=== PATIENT | male | born 1945 | race Caucasian/White ===

== ENCOUNTER 2017-06-10 21:01 | Inpatient (IN) ==
[2017-06-10] MEDS ORDERED: Naloxone 0.4 MG/ML INJ IVP PRN (23:40)
[2017-06-10] MEDS ORDERED: Ondansetron ODT 4 MG TAB.RAPDIS SL PRN (23:40)
[2017-06-10] MEDS ORDERED: Acetaminophen 325 MG TABLET PO PRN (23:40)
--- NOTE | 2017-06-10 23:40 | Internal Med History&Physical ---
Date of Encounter: 06/11/17 Time of Encounter: 23:35 Assessment and Plan (1) CVA (cerebral vascular accident) Current visit: Yes Status: Acute Aspirin 325 mg daily, check MRI brain check carotid Doppler, physical therapy and occupational therapy consults, most likely patient needed rehabilitation. We will check cardiac echo to rule out any embolic stroke, patient is not candidate for TPA (2) COPD (chronic obstructive pulmonary disease) Current visit: Yes Status: Acute stable Qualifiers: COPD type: unspecified COPD Qualified Code(s): J44.9 - Chronic obstructive pulmonary disease, unspecified (3) HTN (hypertension) Current visit: Yes Status: Acute Close monitoring, avoid tight control of blood pressure during the acute stage Qualifiers: Hypertension type: essential hypertension Qualified Code(s): I10 - Essential (primary) hypertension (4) Dyslipidemia Current visit: Yes Status: Acute (5) Parkinson disease Current visit: Yes Status: Acute Resume home medication Internal Medicine - H&P: HPI Chief complaint: Weakness and left lower extremities Admitted From: Emergency Dept History of present illness: Mr. Ontiveros is a 71 year old male with past medical history of coronary artery disease status post 4 stent. Patient stated that he had fall about 2 months ago since then he had left hip pain. Patient is complaining of generalized weakness. Patient stated about 1 month ago he started to have left lower extremity weakness which has been getting worse over last 3 days. Patient stated, he noticed some drooping of fluids from left side of his mouth , this is happening on and off for lately patient does not know for how long .patient denies any visual changes. Patient stated [place] for him to walk now Past Med Surg Social Fam HX - Past Medical History Medical history: COPD, coronary artery disease, diabetes, hyperlipidemia, hypertension, myocardial infarction Psychiatric history: no psych history - Past Surgical History Surgical History: angioplasty/stent - Social History Smoking Status: Current every day smoker Packs per day: 1 Smokeless Tobacco Status: No Alcohol use: none Drug use: none - Family History Father Hx Family Cancer: Yes (lung) Mother History Unknown: Yes Internal Medicine - H&P: Meds Aspirin Enteric Coated [Aspirin] 81 mg PO DAILY 05/22/15 [History] Buspirone 10 mg PO DAILY 05/22/15 [History] Calcium Citrate/Vitamin D3 500 mg PO DAILY 05/22/15 [History] Carbidopa/Levodopa 25/100 1 tab PO TID 05/22/15 [History] Ropinerole 2 mg PO TID 05/22/15 [History] Sertraline [Zoloft] 50 mg PO DAILY 05/22/15 [History] Simvastatin [Zocor] 40 mg PO HS 05/22/15 [History] TraMADol [Ultram] 50 mg PO TID PRN 05/22/15 [History] Polyethylene Glycol 3350 [MiraLAX Powder Bulk 17.9 Oz] 1 scoop PO BID PRN #510 gm 08/21/16 [Rx] Meclizine [Antivert] 12.5 mg PO TID PRN #15 tablet 09/22/16 [Rx] Aspirin [Lo-Dose Aspirin EC] 81 mg PO DAILY 06/10/17 [History] 3 Allergy/AdvReac Type Severity Reaction Status Date / Time ciprofloxacin [From Cipro] AdvReac Itching Verified 06/10/17 14:30 All Systems PM: A 10-system review of systems was performed and is negative for pertinent findings except as documented above in the HPI. - Constitutional Vitals: Temp Pulse Resp BP Pulse Ox 97.7 F 76 17 122/70 94 06/10/17 22:48 06/10/17 22:48 06/10/17 22:48 06/10/17 22:48 06/10/17 22:48 General appearance: Present: A&O X 3 - Head Head exam: Present: atraumatic, normocephalic - Respiratory Respiratory exam: Present: decreased breath sounds. Absent: accessory muscle use, rales, rhonchi, wheezes - Cardiovascular Cardiovascular exam: Present: RRR, +S1, +S2. Absent: diastolic murmur, gallop, rubs, systolic murmur - GI/Abdominal GI/Abdominal exam: Present: normal bowel sounds, soft, no peritoneal signs. Absent: distended, tenderness - Extremities Exam Extremities exam: Present: warm, radial pulses palpable and symmetrical. Absent : calf tenderness, cyanotic, pedal edema - Neurological Exam Neurological exam: Present: alert, oriented X3, facial droop (Left facial drop) . Absent: pronater drift, speech deficit Additional comments: Rigidity stiffness left lower extremities, motor 2 out of 5 left lower extremities, weak hand brand recorder on left lower extremities - Skin Skin exam: Present: dry, intact Internal Med - H&P Results - Labs CBC & Chem 7: 06/11/17 00:37 06/11/17 00:37
[2017-06-11 01:06] LABS: Basophils % 0.5 %; Eosinophils # 0.1 K/mcL (0.0-0.6); Hemoglobin 12.9 g/dL (12.9-16.9); Immature Granulocytes % 0.3 % (0-4); Lymphocytes # 1.4 K/mcL (0.6-4.6); Lymphocytes % 21.8 %; Mean Corpuscular HGB Conc 32.3 g/dL (31.6-35.5); Mean Corpuscular Hemoglobin 28.5 pg (28.0-33.3); Mean Corpuscular Volume 88.3 fL (83.0-100.0); Mean Platelet Volume 10.7 fL (9.4-12.4); Monocytes # 0.4 K/mcL (0.0-1.3); Monocytes % 5.4 %; Neutrophils # 4.6 K/mcL (1.6-8.9); Platelet Count 183 K/mcL (140-400); Red Blood Count 4.53 M/mcL (4.19-5.50); Red Cell Distribution Width 13.6 % (11.5-14.5)
[2017-06-11 01:26] LABS: Phosphorous 2.9 mg/dL (2.7-4.5)
[2017-06-11 01:29] LABS: BUN/Creatinine Ratio 24 (6-26); Blood Urea Nitrogen 23 mg/dL (8-23); Calcium 9.7 mg/dL (8.6-10.3); Carbon Dioxide 30 mEq/L (23-29); Chloride 103 mEq/L (98-107); Glucose 113 mg/dL (70-105); Osmolality,Calculated 292 (280-300); Potassium 3.8 mEq/L (3.5-5.1); Sodium 139 mEq/L (136-145); eGFR For African Americans > 60 (> 60); eGFR For Non-African Americans > 60 (> 60)
[2017-06-11] MEDS: Carbidopa/Levodopa 25/100 TABLET PO SCH ×3 (08:42→21:18)
[2017-06-11 10:24] LABS: Chol/HDL Ratio 5.1 (0-4.9)
--- NOTE | 2017-06-11 11:18 | Neurology - Consult Note ---
<Carmenza Rai - Last Filed: 06/11/17 15:56> Date of Encounter: 06/11/17 Time of Encounter: 11:16 Assessment and Plan (1) Left-sided weakness Current Visit: Yes Status: Acute patient reports left arm and leg weakness that started about one month ago and has progressively been getting worse. denies hx of stroke CT head showed decreased attenuation in right posterior area. Brain MRI negative for acute infarct. Lipid panel reviewed Plan: agree with PT/OT speech eval carotid duplex, echo pending A1C pending ASCVD risk: 55.6%: recommend switching to high intensity dose statin (2) Parkinson disease Current Visit: Yes Status: Acute (3) HTN (hypertension) Current Visit: Yes Status: Chronic Qualifiers: Hypertension type: essential hypertension Qualified Code(s): I10 - Essential (primary) hypertension (4) Dyslipidemia Current Visit: Yes Status: Acute History of Present Illness Chief complaint: weakness HPI: Mr. Ontiveros is a 71 year old male with pMHx of COPD, DM, HLD, HTn, MO, parinsons, CAD (s/p stent placement). Patient arrived to [facility] with chief complaint of generalized weakness, especially in the left upper and lowr extremities. This started approximately one month ago and has been getting worse for about the past three days. He denies history of TIA/CVA. he denies history o f stroke. he denies any facial drooping or slurred speech. patient denies nausea, vomiting, diarrhea, fever, chills, chest pain, shortness of breath. Past Med Surg Social Fam HX - Past Medical History Medical history: COPD, coronary artery disease, diabetes, hyperlipidemia, hypertension, myocardial infarction Psychiatric history: no psych history - Past Surgical History Surgical History: angioplasty/stent - Social History Smoking Status: Current every day smoker Packs per day: 1 Smokeless Tobacco Status: No Alcohol use: none Drug use: none - Family History Father Hx Family Cancer: Yes (lung) Mother History Unknown: Yes Medications and Allergies 3 Allergy/AdvReac Type Severity Reaction Status Date / Time ciprofloxacin [From Cipro] AdvReac Itching Verified 06/10/17 14:30 All Systems: A 10-system review of systems was performed and is negative for pertinent findings except as documented above in the HPI. Physical Examination - Vital Signs Vital Signs: Initial Vital Signs Temp Pulse Resp BP Pulse Ox 97.7 F 76 17 122/70 94 06/10/17 22:48 06/10/17 22:48 06/10/17 22:48 06/10/17 22:48 06/10/17 22:48 - Constitutional General appearance: comfortable, older than stated age - Neurologic Sensorimotor examination: hemiparesis (left sided weakness. sensation decreased on left compared to right. ) Motor examination - right side: 3/5: deltoids, biceps, triceps, wrist flexion, wrist extension, quadriceps, plantarflexion Motor examination - left side: 3/5: deltoids, biceps, triceps, wrist flexion Detailed sensory examination: light touch, two-point discrimination Reflexes: Biceps: 1+, Triceps: 1+, Patella: 1+, Achilles: 1+ Mental Status Examination: awake, alert, oriented to person, oriented to place, oriented to time, follows commands appropriately, answers questions appropriately, no aphasia Results - Laboratory Findings CBC and BMP: 06/11/17 00:37 06/11/17 00:37 Abnormal lab findings: Abnormal lab results Carbon Dioxide 30 mEq/L (23-29) H 06/11/17 00:37 Glucose 113 mg/dL (70-105) H 06/11/17 00:37 LDL Cholesterol, Calc 100 mg/dL (0-99) H 06/11/17 00:37 HDL Cholesterol 28 mg/dL (40-59) L 06/11/17 00:37 Cholesterol/HDL Ratio 5.1 (0-4.9) H 06/11/17 00:37 Consult Discharge Plan - Plan [facility] Care Provider[facility] - <Ortega Crockett - Last Filed: 06/11/17 16:52> Date of Encounter: 06/11/17 Time of Encounter: 16:42 Assessment and Plan (1) Left-sided weakness Current Visit: Yes Status: Acute This case is very difficult particularly because he has idiopathic Parkinson's disease which makes it difficult to identify other motor abnormalities. Overall he seems to have weakness of the left upper and left lower extremity as well as paresthesias of the left leg and left arm. MRI scan of the brain reveals scattered white matter changes however no evidence of an acute infarct. He does have generalized atrophy. Echocardiogram was negative, the carotid Doppler study revealed nonstenotic plaquing. I would simply recommend aggressive management of his stroke risk factors. Recommend ongoing antiplatelet therapy as well as hypertensive and statins. He may unfortunately need to go to an extended care facility for rehabilitation after discharge. I will reevaluate him at your request. History of Present Illness HPI: Mr. Ontiveros is a 71 year old male who was seen for neurologic consultation at the request of hospitalist service secondary to weakness of the left upper and left lower extremity. This gentleman has advanced Parkinson's disease, as well as left lower extremity weakness due to previous lumbar laminectomy. Patient was seen and examined independently. I agree with the resident's assessment as documented above. All Systems: A 10-system review of systems was performed and is negative for pertinent findings except as documented above in the HPI. Review of Systems: Review of systems is consistent with a history of present illness and otherwise negative. Physical Examination - Vital Signs Vital Signs: Initial Vital Signs Temp Pulse Resp BP Pulse Ox 97.7 F 76 17 122/70 94 06/10/17 22:48 06/10/17 22:48 06/10/17 22:48 06/10/17 22:48 06/10/17 22:48 - Exam Exam: Neurologic examination is performed and finds phone. 4 cerebral functions he is awake he is alert he is not a great historian however he follows some simple commands. Sometimes it is difficult to get a specific answer from him. There is no nausea. He does have some motor apraxia. Cranial nerves-pupils are equal and reactive to light and accommodation, extraocular motility is intact. Sensory to face is intact. He does have masked facies of Parkinson's disease. There is no facial asymmetry however. Tongue protrudes midline. Motor exam finds resting tremor of both upper extremities. He does have masked facies. He has achieved for weakness of both upper extremities however left greater than right. The right leg is externally rotated and he has difficulty raising and off the bed. He can raise the left leg off the bed against gravity. He seems to have bilateral foot drops. Seems to have some spasticity of the right lower extremity. Sensory exam finds light touch and deep touch are globally intact. Deep tendon reflexes are 2+ symmetrically of the triceps and brachial radialis. The right patella reflexes Klonopin for left patellar reflex is absent. Achilles reflexes are absent symmetrically. No Babinski signs are identified. Results - Laboratory Findings CBC and BMP: 06/11/17 00:37 12/20/17 00:37 Abnormal lab findings: Abnormal lab results Carbon Dioxide 30 mEq/L (23-29) H 06/11/17 00:37 Glucose 113 mg/dL (70-105) H 06/11/17 00:37 LDL Cholesterol, Calc 100 mg/dL (0-99) H 06/11/17 00:37 HDL Cholesterol 28 mg/dL (40-59) L 06/11/17 00:37 Cholesterol/HDL Ratio 5.1 (0-4.9) H 06/11/17 00:37
[2017-06-11 12:53] LABS: Hemoglobin A1C 5.6 %
[2017-06-11] MEDS ORDERED: D5% in Water 1,000 ML IVC PRN (13:01)
[2017-06-11] MEDS ORDERED: *HR* Dextrose 50 % in Water (Syg) 50 ML SYRINGE IVP PRN (13:01)
[2017-06-11] MEDS ORDERED: Dextrose Gel 15 GM PO PRN ×2 (13:01)
[2017-06-11] MEDS: Insulin LISPRO 300 UNITS/3 ML VIAL SQ SCH ×2 (17:17→21:07)
--- NOTE | 2017-06-11 17:57 | Internal Med Progress Note ---
Date of Encounter: 06/11/17 Time of Encounter: 08:55 - Assessment and plan (1) Diabetes mellitus type 2 in nonobese Current Visit: Yes Status: Acute Assessment and plan: Accu-Cheks before meals and at bedtime, sliding scale insulin, diabetic diet. A1c is 5.6%. (2) CVA (cerebral vascular accident) Current Visit: Yes Status: Acute Assessment and plan: Patient reports left arm and left leg weakness that began approximately 2 months ago, has become increasingly worse over time. She denies any prior history of stroke or TIA. He does have sensory deficit left side, and is obviously weaker on physical exam. Brain MRI is negative for acute abnormality. Head CT showed loss of patel white differentiation and right parietal occipital lobe. This could reflect an acute infarct, MRI was recommended for follow-up. Echo showed an LVEF is 55-60% with mild LV DD, no obvious significant valvular dysfunction. Bilateral carotid nonstenotic plaque. Patient remains mildly hypertensive, we will allow for permissive hypertension. Physical therapy recommends SNF after discharge. Brain MRI 06/11/17 06:43 IMPRESSION: Cerebral atrophy. Mild chronic small vessel ischemic changes. No acute brain parenchymal abnormality. D/ / 06/11/2017 10:14:41 Elana Colby MD / [facility] Interpreting Provider: Elana Colby MD Echocardiogram 06/11/17 07:38 Impressions: Technically sub-optimal due to poor echocardiographic windows. Not all LV segments were well visualized, but overall LVEF appears normal, 55-60%. Mild left ventricular diastolic dysfunction. Atypical septal motion of unclear etiology. Grossly normal right ventricular structure and function. Unable to estimate RVSP due to lack of TR jet. No obvious significant valvular dysfunction. Findings: Study Quality * Technically sub-optimal due to poor echocardiographic windows. ECG Findings * Normal sinus rhythm. Left Ventricle * Not all LV segments were well visualized, but overall LVEF appears normal, 55-60%. * Grossly normal LV wall thickness and chamber size. * Mild left ventricular diastolic dysfunction. * Atypical septal motion of unclear etiology. Right Ventricle * Grossly normal right ventricular structure and function. Left Atrium * Mildly dilated left atrium. Right Atrium * Mildly dilated right atrium. Interatrial Septum * Interatrial septum not well evaluated. Aortic Valve * Aortic valve not well visualized. * No aortic regurgitation. * No aortic stenosis. Mitral Valve * Mild posteiror mitral annular calcification. * No mitral regurgitation. * No mitral stenosis. Tricuspid Valve * Tricuspid valve not well visualized. * No tricuspid regurgitation. * Unable to estimate RVSP due to lack of TR jet. Pulmonic Valve * Pulmonic valve not well visualized. * No pulmonic regurgitation. Aorta * Normally sized aortic root. Pericardium * The pericardium appears normal. IVC * The IVC is not well evaluated. Pulmonary Artery * Pulmonary artery not well visualized. Qualifiers: CVA mechanism: unspecified Qualified Code(s): I63.9 - Cerebral infarction, unspecified (3) COPD (chronic obstructive pulmonary disease) Current Visit: Yes Status: Acute Qualifiers: COPD type: unspecified COPD Qualified Code(s): J44.9 - Chronic obstructive pulmonary disease, unspecified (4) HTN (hypertension) Current Visit: Yes Status: Chronic Qualifiers: Hypertension type: essential hypertension Qualified Code(s): I10 - Essential (primary) hypertension (5) Dyslipidemia Current Visit: Yes Status: Acute (6) Parkinson disease Current Visit: Yes Status: Acute (7) Left-sided weakness Current Visit: Yes Status: Acute - Time Spent With Patient less than 15 minutes - Subjective Interval history: Patient was seen and assessed [id number] AM. He reports that he has had increasing left-sided weakness, numbness and tingling for 2 months. States that it has become worse, prompting his visit to the emergency department. He does report sensory deficits to left side, obviously weaker on left side on physical exam. Patient states that he lives at home, family cares for him. He denies headache or blurred vision, no chest pain or shortness of breath, no abdominal pain, nausea, vomiting, diaphoresis, diarrhea. - Constitutional Vitals: Temp Pulse Resp BP Pulse Ox 97.6 F 75 18 153/76 96 06/11/17 11:15 06/11/17 11:15 06/11/17 11:15 06/11/17 11:15 06/11/17 11:15 General appearance: Present: cooperative, A&O X 3, pleasant, answers questions appropriately - Head Head exam: Present: atraumatic, normal inspection, normocephalic - Eye Eye exam: Present: normal appearance, conjuntiva pink, sclera anicteric - Neck Neck exam general surgery: Present: supple, trachea midline. Absent: lymphadenopathy, tenderness - Respiratory Respiratory exam: Present: CTAB. Absent: accessory muscle use, chest wall tenderness, decreased breath sounds, rales, respiratory distress, rhonchi, wheezes - Cardiovascular Cardiovascular exam: Present: RRR, +S1, +S2. Absent: diastolic murmur, gallop, rubs, systolic murmur - GI/Abdominal GI/Abdominal exam: Present: normal bowel sounds, soft, no peritoneal signs. Absent: distended, hepatomegaly, tenderness - Extremities Exam Extremities exam: Present: warm, radial pulses palpable and symmetrical. Absent : calf tenderness, cyanotic, pedal edema, tenderness - Neurological Exam Neurological exam: Present: alert, oriented X3, no focal deficits, pronater drift. Absent: facial droop, speech deficit - Skin Skin exam: Present: dry, intact, normal color, warm. Absent: rash Internal Medicine: Result - Labs CBC & Chem 7: 06/11/17 00:37 06/11/17 00:37 Labs: Short CBC 06/11/17 Range/Units 00:37 WBC 6.6 (4.3-11.1) K/mcL Hgb 12.9 (12.9-16.9) g/dL Hct 40.0 (37.5-50.1) % Plt Count 183 (140-400) K/mcL Neutrophils # 4.6 (1.6-8.9) K/mcL BMP 06/11/17 00:37 Sodium 139 Potassium 3.8 Chloride 103 Carbon Dioxide 30 H BUN 23 Creatinine 0.96 Glucose 113 H Calcium 9.7 - Impressions Impressions Brain MRI 06/11/17 06:43 IMPRESSION: Cerebral atrophy. Mild chronic small vessel ischemic changes. No acute brain parenchymal abnormality. D/ : / 06/11/2017 10:14:41 [facility] MD [facility] Interpreting Provider: Elana Colby MD Echocardiogram 06/11/17 07:38 Impressions: Technically sub-optimal due to poor echocardiographic windows. Not all LV segments were well visualized, but overall LVEF appears normal, 55-60%. Mild left ventricular diastolic dysfunction. Atypical septal motion of unclear etiology. Grossly normal right ventricular structure and function. Unable to estimate RVSP due to lack of TR jet. No obvious significant valvular dysfunction. Findings: Study Quality * Technically sub-optimal due to poor echocardiographic windows. ECG Findings * Normal sinus rhythm. Left Ventricle * Not all LV segments were well visualized, but overall LVEF appears normal, 55-60%. * Grossly normal LV wall thickness and chamber size. * Mild left ventricular diastolic dysfunction. * Atypical septal motion of unclear etiology. Right Ventricle * Grossly normal right ventricular structure and function. Left Atrium * Mildly dilated left atrium. Right Atrium * Mildly dilated right atrium. Interatrial Septum * Interatrial septum not well evaluated. Aortic Valve * Aortic valve not well visualized. * No aortic regurgitation. * No aortic stenosis. Mitral Valve * Mild posteiror mitral annular calcification. * No mitral regurgitation. * No mitral stenosis. Tricuspid Valve * Tricuspid valve not well visualized. * No tricuspid regurgitation. * Unable to estimate RVSP due to lack of TR jet. Pulmonic Valve * Pulmonic valve not well visualized. * No pulmonic regurgitation. Aorta * Normally sized aortic root. Pericardium * The pericardium appears normal. IVC * The IVC is not well evaluated. Pulmonary Artery * Pulmonary artery not well visualized. Consult Discharge Plan - Plan [facility]errals: [facility] [Primary Care Provider] -
[2017-06-12] MEDS: *HR* Enoxaparin 40 MG/0.4 ML SYRINGE SQ SCH (06:40)
--- NOTE | 2017-06-12 08:17 | Neurology Progress Note ---
Date of Encounter: 06/12/17 Time of Encounter: 08:15 Assessment and Plan (1) Left-sided weakness Current Visit: Yes Status: Acute As mentioned on yesterday's assessment, this case is complicated due to the superimposed Parkinson's. He also had a previous MRI that revealed possible lesion involving the thoracic spine. Most therefore try to reconcile the hyperreflexia at the right patella. I will also like to add Comtan to his daily Parkinson's regimen. This should help to prolong the effects of the levodopa. Subjective Interval history: Chart was reviewed, the patient was seen and examined. He is currently sitting up in bed eating his breakfast without difficulty. He does have a resting tremor of the right upper extremity. He states that he slept well last night. He is anxious for discharge however concerned about his ability to assist in his own care. He states that normally he is able to walk with a walker. Still maintaining some element of weakness of the left upper and left lower extremity and is hyperreflexic at the right patella. I would like to obtain an MRI of the thoracic spine. Also recommend PT/OT evaluations to determine his ability to walk and function. Objective - Constitutional Vitals: Temp Pulse Resp BP Pulse Ox 98.1 F 71 18 159/81 97 06/12/17 07:10 06/12/17 07:10 06/12/17 07:10 06/12/17 07:10 06/12/17 07:10 - Neurological Exam Sensorimotor examination: Present: hemiparesis (left sided weakness. sensation decreased on left compared to right. 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 Motor examination - left side: 3/5: deltoids, biceps, triceps, wrist flexion, quadriceps Sensation intact: Present: light touch Reflexes: Patella: 3+ (Right patella) Mental Status Examination: Present: awake, alert, oriented to person, oriented to place, oriented to time, follows commands appropriately, answers questions appropriately, no aphasia Cranial nerve examination: Present: PERRL, EOMI, visual elaine intact, corneal reflexes brisk symmetrically, sensory to face intact, mastication intact, no facial asymmetry is present, hearing is intact symmetrically Results - Laboratory Findings CBC and BMP: 06/11/17 00:37 06/11/17 00:37 Abnormal lab findings: Abnormal lab results Carbon Dioxide 30 mEq/L (23-29) H 06/11/17 00:37 Glucose 113 mg/dL (70-105) H 06/11/17 00:37 POC Glucose 319 (58-89) H 06/11/17 16:35 LDL Cholesterol, Calc 100 mg/dL (0-99) H 06/11/17 00:37 HDL Cholesterol 28 mg/dL (40-59) L 06/11/17 00:37 Cholesterol/HDL Ratio 5.1 (0-4.9) H 06/11/17 00:37 Consult Discharge Plan - Plan [facility]errals: [facility] [Primary Care Provider] -
[2017-06-12] MEDS: Carbidopa/Levodopa 25/100 TABLET PO SCH ×3 (09:44→21:55)
[2017-06-12] MEDS: Insulin LISPRO 300 UNITS/3 ML VIAL SQ SCH ×4 (09:45→21:56)
--- NOTE | 2017-06-12 17:48 | Internal Med Progress Note ---
Date of Encounter: 06/12/17 Time of Encounter: 09:50 - Assessment and plan (1) Diabetes mellitus type 2 in nonobese Current Visit: Yes Status: Acute Assessment and plan: Accu-Cheks before meals and at bedtime, sliding scale insulin, diabetic diet. A1c is 5.6%. (2) CVA (cerebral vascular accident) Current Visit: Yes Status: Acute Assessment and plan: Patient reports left arm and left leg weakness that began approximately 2 months ago, has become increasingly worse over time. She denies any prior history of stroke or TIA. He does have sensory deficit left side, and is obviously weaker on physical exam. Brain MRI is negative for acute abnormality. Head CT showed loss of patel white differentiation and right parietal occipital lobe. This could reflect an acute infarct, MRI was recommended for follow-up. Echo showed an LVEF is 55-60% with mild LV DD, no obvious significant valvular dysfunction. Bilateral carotid nonstenotic plaque. Patient remains mildly hypertensive, we will allow for permissive hypertension. Physical therapy recommends SNF after discharge. Brain MRI 06/11/17 06:43 IMPRESSION: Cerebral atrophy. Mild chronic small vessel ischemic changes. No acute brain parenchymal abnormality. D/ / 06/11/2017 10:14:41 Elana Colby MD / [facility] Interpreting Provider: Elana Colby MD Echocardiogram 06/11/17 07:38 Impressions: Technically sub-optimal due to poor echocardiographic windows. Not all LV segments were well visualized, but overall LVEF appears normal, 55-60%. Mild left ventricular diastolic dysfunction. Atypical septal motion of unclear etiology. Grossly normal right ventricular structure and function. Unable to estimate RVSP due to lack of TR jet. No obvious significant valvular dysfunction. Findings: Study Quality * Technically sub-optimal due to poor echocardiographic windows. ECG Findings * Normal sinus rhythm. Left Ventricle * Not all LV segments were well visualized, but overall LVEF appears normal, 55-60%. * Grossly normal LV wall thickness and chamber size. * Mild left ventricular diastolic dysfunction. * Atypical septal motion of unclear etiology. Right Ventricle * Grossly normal right ventricular structure and function. Left Atrium * Mildly dilated left atrium. Right Atrium * Mildly dilated right atrium. Interatrial Septum * Interatrial septum not well evaluated. Aortic Valve * Aortic valve not well visualized. * No aortic regurgitation. * No aortic stenosis. Mitral Valve * Mild posteiror mitral annular calcification. * No mitral regurgitation. * No mitral stenosis. Tricuspid Valve * Tricuspid valve not well visualized. * No tricuspid regurgitation. * Unable to estimate RVSP due to lack of TR jet. Pulmonic Valve * Pulmonic valve not well visualized. * No pulmonic regurgitation. Aorta * Normally sized aortic root. Pericardium * The pericardium appears normal. IVC * The IVC is not well evaluated. Pulmonary Artery * Pulmonary artery not well visualized. Qualifiers: CVA mechanism: unspecified Qualified Code(s): I63.9 - Cerebral infarction, unspecified (3) COPD (chronic obstructive pulmonary disease) Current Visit: Yes Status: Acute Assessment and plan: No acute exacerbation. Lungs are clear and diminished throughout. Continue home medications. O2 as needed to maintain sats greater than 92%. Nebulizers as needed. Qualifiers: COPD type: unspecified COPD Qualified Code(s): J44.9 - Chronic obstructive pulmonary disease, unspecified (4) HTN (hypertension) Current Visit: Yes Status: Chronic Assessment and plan: Well-controlled. Continue home medications. Qualifiers: Hypertension type: essential hypertension Qualified Code(s): I10 - Essential (primary) hypertension (5) Dyslipidemia Current Visit: Yes Status: Acute Assessment and plan: Chronic. Continue home medications. (6) Parkinson disease Current Visit: Yes Status: Acute Assessment and plan: Chronic. Continue home medication. (7) Left-sided weakness Current Visit: Yes Status: Acute Assessment and plan: Patient with obvious left-sided weakness and sensory deficit. Thoracic spine CT completed. There is no acute abnormality, no significant spinal canal stenosis or neural foraminal narrowing. Patient does have dextroscoliosis of upper lumbar spine. PT OT recommend SNF for rehabilitation - Time Spent With Patient less than 15 minutes - Subjective Interval history: Patient was seen and assessed at 0950 AM. Physical exam remains unchanged from yesterday. Patient denies any headache, nausea vomiting, diarrhea, abdominal pain, chest pain or shortness of breath. When I saw patient today, he stated he did not want to go to a rehabilitation facility, apparently social media marketing specialist has discussed this with patient and he will be going is approved and there is a bed available. - Constitutional Vitals: Temp Pulse Resp BP Pulse Ox 97.9 F 65 18 173/73 99 06/12/17 15:41 06/12/17 15:41 06/12/17 15:41 06/12/17 15:41 06/12/17 15:41 General appearance: Present: cooperative, A&O X 3, pleasant, no acute distress, answers questions appropriately - Head Head exam: Present: atraumatic, normocephalic - Eye Eye exam: Present: normal appearance, conjuntiva pink, sclera anicteric - Neck Neck exam general surgery: Present: supple, trachea midline. Absent: lymphadenopathy - Respiratory Respiratory exam: Present: CTAB. Absent: accessory muscle use, rales, rhonchi, wheezes - Cardiovascular Cardiovascular exam: Present: RRR, +S1, +S2. Absent: diastolic murmur, gallop, rubs, systolic murmur - GI/Abdominal GI/Abdominal exam: Present: normal bowel sounds, soft, no peritoneal signs. Absent: distended, hepatomegaly, tenderness - Extremities Exam Extremities exam: Present: normal capillary refill, normal inspection, warm, radial pulses palpable and symmetrical. Absent: calf tenderness, cyanotic, pedal edema, tenderness - Neurological Exam Neurological exam: Present: alert, CN II-XII intact, motor sensory deficit, oriented X3, no focal deficits. Absent: altered, normal gait, strengths equal and symetr throughout, facial droop, speech deficit - Skin Skin exam: Present: dry, intact, normal color, warm. Absent: rash Internal Medicine: Result - Labs CBC & Chem 7: 06/11/17 00:37 06/11/17 00:37 - Impressions Impressions Brain MRI 06/11/17 06:43 IMPRESSION: Cerebral atrophy. Mild chronic small vessel ischemic changes. No acute brain parenchymal abnormality. D/ : / 06/11/2017 10:14:41 [facility] Provider: Elana Colby MD Thoracic Spine MRI 06/12/17 08:23 IMPRESSION: 1. No acute abnormality identified of the thoracic spine. 2. No significant spinal canal stenosis or neural foraminal narrowing. 3. No convincing abnormal cord signal. 4. Dextroscoliosis of the upper lumbar spine. D/ / Rivas Gamble MD / Rivas Gamble MD Interpreting Provider: Rivas Gamble MD Consult Discharge Plan - Plan [facility]: [facility] [Primary Care Provider[facility] -
[2017-06-13] MEDS: *HR* Enoxaparin 40 MG/0.4 ML SYRINGE SQ SCH (06:08)
[2017-06-13] MEDS: Insulin LISPRO 300 UNITS/3 ML VIAL SQ SCH ×2 (09:26→11:36)
[2017-06-13] MEDS: Carbidopa/Levodopa 25/100 TABLET PO SCH (09:26)
[2017-06-13 10:34] VITALS: BP 110/67
--- NOTE | 2017-06-13 12:31 | Discharge Summary ---
Date of Encounter: 06/13/17 Time of Encounter: 08:55 - Discharge Diagnosis (1) Left-sided weakness Priority: Primary Status: Acute Comments: Patient with obvious left-sided weakness and sensory deficit, onset 2 months ago. Thoracic spine CT completed. There is no acute abnormality, no significant spinal canal stenosis or neural foraminal narrowing. Patient does have dextroscoliosis of upper lumbar spine. PT OT recommend SNF for rehabilitation. Pt has been evaluated by neurology. He believes that the difficulty walking and weakness is likely due to cerebrovascular disease, as well as Parkinson's. [facility] Neurology also recommends rehabilitation to help maximize gait function. (2) Diabetes mellitus type 2 in nonobese Priority: Secondary Status: Acute Comments: A1c is 5.6%. Continue Accu-Cheks, sliding scale insulin and diabetic diet. (3) CVA (cerebral vascular accident) Priority: Secondary Status: Chronic Comments: Patient reports left arm and left leg weakness that began approximately 2 months ago, has become increasingly worse over time. She denies any prior history of stroke or TIA. He does have sensory deficit left side, and is obviously weaker on physical exam. Brain MRI is negative for acute abnormality. Head CT showed loss of patel white differentiation and right parietal occipital lobe. This could reflect an acute infarct, MRI was recommended for follow-up. Echo showed an LVEF is 55-60% with mild LV DD, no obvious significant valvular dysfunction. Bilateral carotid nonstenotic plaque. Patient remains mildly hypertensive, we will allow for permissive hypertension. Physical therapy recommends SNF after discharge. Brain MRI 06/11/17 06:43 IMPRESSION: Cerebral atrophy. Mild chronic small vessel ischemic changes. No acute brain parenchymal abnormality. D/ / 06/11/2017 10:14:41 Elana Colby MD / [facility] Interpreting Provider: Elana Colby MD Echocardiogram 06/11/17 07:38 Impressions: Technically sub-optimal due to poor echocardiographic windows. Not all LV segments were well visualized, but overall LVEF appears normal, 55-60%. Mild left ventricular diastolic dysfunction. Atypical septal motion of unclear etiology. Grossly normal right ventricular structure and function. Unable to estimate RVSP due to lack of TR jet. No obvious significant valvular dysfunction. Qualifiers: CVA mechanism: unspecified Qualified Code(s): I63.9 - Cerebral infarction, unspecified (4) COPD (chronic obstructive pulmonary disease) Priority: Secondary Status: Chronic Comments: No acute exacerbation. Lungs are clear and diminished throughout. Continue home medications. O2 as needed to maintain sats greater than 92%. Nebulizers as needed. Qualifiers: COPD type: unspecified COPD Qualified Code(s): J44.9 - Chronic obstructive pulmonary disease, unspecified (5) HTN (hypertension) Priority: Secondary Status: Chronic Comments: Well-controlled. Continue home medications. Qualifiers: Hypertension type: essential hypertension Qualified Code(s): I10 - Essential (primary) hypertension (6) Dyslipidemia Priority: Secondary Status: Chronic (7) Parkinson disease Priority: Secondary Status: Chronic Comments: Continue home medications. [facility]. (8) DVT prophylaxis Priority: Secondary Status: Acute Comments: Lovenox SQ - Discharge Medications Prescriptions: Gabapentin [Neurontin] 100 mg PO BID #4 capsule Tramadol HCl [Ultram] 50 mg PO TID PRN #3 tablet PRN Reason: Pain Home Medications: Buspirone HCl [Buspar] 10 mg PO BID 06/11/17 [History] Carbidopa/Levodopa 25/100 [Sinemet 25/100] 1 each PO TID 06/11/17 [History] Carboxymethylcellulose Sodium [Refresh Liquigel] 1 drop OP TID PRN 06/11/17 [ History] Cholecalciferol (D-3) [Vitamin D] 1,000 unit PO DAILY 06/11/17 [History] Lactulose 20 gm PO BID PRN 06/11/17 [History] Ondansetron HCl [Zofran] 4 mg PO DAILY 06/11/17 [History] Polyethylene Glycol 3350 [MiraLAX] 17 gm PO BID 06/11/17 [History] Ropinirole HCl [Requip] 2 mg PO BID 06/11/17 [History] Sennosides/Docusate Sodium [Senna Plus] 2 each PO DAILY 06/11/17 [History] Sertraline [Zoloft] 200 mg PO DAILY 06/11/17 [History] Simvastatin [Zocor] 40 mg PO HS 06/11/17 [History] Tiotropium [Spiriva] 18 mcg IH 0700 06/11/17 [History] traZODone [TraZODone] 50 mg PO HS 06/11/17 [History] Carbidopa/Levodopa 25/100 [Sinemet 25/100] 1 each PO TID tablet 06/13/17 [Rx] Gabapentin [Neurontin] 100 mg PO BID #4 capsule 06/13/17 [Rx] Tramadol HCl [Ultram] 50 mg PO TID PRN #3 tablet 06/13/17 [Rx] Allergies/Adverse Reactions: 3 Allergy/AdvReac Type Severity Reaction Status Date / Time ciprofloxacin [From Cipro] AdvReac Itching Verified 06/10/17 14:30 Procedures/tests Complete & Pending: Procedures Performed prior 72 hours Category Date Time Status MR head/brain wo con [MR] Routine MRI 06/11/17 06:43 Completed MR thoracic spine wo con [MR] Stat MRI 06/12/17 08:23 Completed EV carotid duplex imaging BI Routine Y 06/11/17 07:25 Completed EV echocardiogram Routine Y 06/11/17 07:38 Completed Date of admission: 06/11/17 09:40 [facility] Consults: 06/10/17 23:43 Consult to Neurology [CONS] Routine Consulting Provider: Neurology [facility] Reason for Consult: CVA Call Completed: No 06/11/17 07:40 Consult to Occupational Therapy [CONS] Routine Comment: Evaluate, develop and implement POC Reason for Consult: CVA- EVALUATION Consult to Physical Therapy [CONS] Routine Comment: Evaluate, develop and implement POC Reason for Consult: CVA- EVALUATION 06/11/17 11:09 Consult to Speech Therapy [CONS] Routine Comment: Evaluate, develop and implement POC Reason for Consult: MRI negative Call Completed: Yes 06/11/17 18:03 Consult to Finished Yarn Examiner [CONS] Routine Reason for SW Consult: discharge planning. S/P CVA, PT recommends SNF for rehab. Discharging clinician: Sofie Barnhart Anticipated date of discharge: 06/13/17 - Patient Status Disposition: Transfer Inpatient Rehab Fac Condition: Good Functional capacity at discharge: uses cane/walker Overall status at discharge: patient is progressing back to baseline - Discharge Instructions [facility] With: [facility] [Primary Care Provider] - - Diet and Activity Activity: as per physical therapy Diet: advance to your usual diet Hospital course: Mr. Ontiveros is a 71 year old male with extensive past medical history including CVA, COPD, hypertension, Parkinson's disease, diabetes, hyperlipidemia. Patient reports 2 month history of increasing left-sided weakness and numbness. MRIs of brain and thoracic spine were negative. Patient has been seen by neurology who recommends patient have physical therapy and occupational therapy at an [facility]. Patient's labs and vital signs have been stable and within normal limits. Patient is going to be discharged to [facility] for continued evaluation. He will need to follow [facility] for his physical therapy and occupational therapy. Patient is stable and appropriate for discharge. - Time Spent with Patient Total time spent providing and/or coordinating discharge services: Less than 30 minutes - Constitutional Vitals: Temp Pulse Resp BP Pulse Ox 98.1 F 79 18 110/67 96 06/13/17 10:27 06/13/17 10:27 06/13/17 10:27 06/13/17 10:27 06/13/17 10:27 General appearance: Present: cooperative, A&O X 3, pleasant, no acute distress, answers questions appropriately - Head Head exam: Present: atraumatic, normal inspection, normocephalic - Eye Eye exam: Present: normal appearance, conjuntiva pink, sclera anicteric - Neck Neck exam general surgery: Present: supple, trachea midline. Absent: lymphadenopathy - Respiratory Respiratory exam: Present: CTAB. Absent: accessory muscle use, rales, rhonchi, wheezes - Cardiovascular Cardiovascular exam: Present: RRR, +S1, +S2. Absent: diastolic murmur, gallop, rubs, systolic murmur - GI/Abdominal GI/Abdominal exam: Present: normal bowel sounds, soft. Absent: distended, hepatomegaly, tenderness - Extremities Exam Extremities exam: Present: warm, radial pulses palpable and symmetrical. Absent : calf tenderness, cyanotic, pedal edema - Neurological Exam Neurological exam: Present: alert, motor sensory deficit, oriented X3, no focal deficits, pronater drift. Absent: normal gait, strengths equal and symetr throughout, facial droop, speech deficit - Skin Skin exam: Present: dry, intact, normal color, warm. Absent: rash
== END 2017-06-13 14:29 | DRG 57 ==
LOC: 3BNU
PROVIDERS: ADMIT Family Medicine; ATTEND Registered Nurse

== ENCOUNTER 2018-05-03 20:07 | Observation (INO) ==
[2018-05-03] MEDS ORDERED: Naloxone 0.4 MG/ML INJ IVP PRN (22:52)
[2018-05-03] MEDS ORDERED: 0.9 % Sodium Chloride 1,000 ML IVC SCH (23:00)
[2018-05-03 23:20] LABS: Basophils % 0.1 %; Eosinophils % 0.1 %; Hematocrit 30.5 % (37.5-50.1); Hemoglobin 9.9 g/dL (12.9-16.9); Immature Granulocytes % 0.5 % (0-4); Lymphocytes # 1.4 K/mcL (0.6-4.6); Lymphocytes % 8.2 %; Mean Corpuscular HGB Conc 32.5 g/dL (31.6-35.5); Mean Corpuscular Hemoglobin 29.3 pg (28.0-33.3); Mean Corpuscular Volume 90.2 fL (83.0-100.0); Mean Platelet Volume 10.2 fL (9.4-12.4); Monocytes # 0.7 K/mcL (0.0-1.3); Monocytes % 4.1 %; Neutrophils # 14.6 K/mcL (1.6-8.9); Platelet Count 171 K/mcL (140-400); Red Blood Count 3.38 M/mcL (4.19-5.50); Red Cell Distribution Width 13.4 % (11.5-14.5)
[2018-05-03 23:27] LABS: INR 1.5; Prothrombin Time 16.8 Seconds (9.4-12.1)
[2018-05-03 23:39] LABS: Alanine Aminotransferase 6 Units/L (7-52); Albumin 3.4 g/dL (3.5-5.7); Albumin/Globulin Ratio 1.3 (1.1-2.2); Alkaline Phosphatase 63 Units/L (34-104); Aspartate Amino Transferase 14 Units/L (13-39); BUN/Creatinine Ratio 25 (6-26); Bilirubin,Total 0.3 mg/dL (0.3-1.0); Blood Urea Nitrogen 26 mg/dL (8-23); Calcium 8.4 mg/dL (8.6-10.3); Carbon Dioxide 23 mEq/L (23-29); Chloride 105 mEq/L (98-107); Globulin 2.6 g/dL (2.4-3.5); Glucose 183 mg/dL (70-105); Magnesium 1.9 mg/dL (1.6-2.6); Osmolality,Calculated 293 (280-300); Potassium 3.8 mEq/L (3.5-5.1); Sodium 137 mEq/L (136-145); eGFR For Non-African Americans > 60 (> 60)
[2018-05-04] MEDS: *HR* Heparin 5,000 UNIT/ML VIAL SQ SCH ×3 (00:07→18:25)
--- NOTE | 2018-05-04 00:07 | Internal Med History&Physical ---
Date of Encounter: 05/04/18 Time of Encounter: 00:05 Internal Medicine - H&P: HPI Chief complaint: Abdominal pain History of present illness: Mr. Ontiveros is a 72 year old male with a past medical history of Parkinson's disease, diabetes, history of CVA with left-sided weakness, diabetes, COPD, hypertension and hyperlipidemia who initially presented to [facility] due to abdominal pain associated with nausea, vomiting and diarrhea. CT scan of the abdomen was performed which showed a complex collection in the right inguinal for now concerning for either hematoma or an abscess. Right inguinal hernia was also associated in the same area. Surgery was consulted and advised the patient be admitted and made nothing by mouth after midnight. A left lower lobe cons olidative pneumonia was also identified on abdominal CT. Patient received a liter fluid bolus and 1 dose of ceftriaxone and Flagyl at [place] prior to transfer. He still complains of abdominal pain currently 5 out of 10 in intensity. She is currently afebrile and hemodynamically stable. Laboratory workup notable for a elevated white blood cell count of 16.8 and mildly anemia 9.9. 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 [employer] - Social History Smoking Status: Current every day smoker Smokeless Tobacco Status: No Alcohol use: none Drug use: none - Family History Father Hx Family Cancer: Yes (lung) Internal Medicine - H&P: Meds Buspirone HCl [Buspar] 10 mg PO BID 06/11/17 [History] Carboxymethylcellulose Sodium [Refresh Liquigel] 1 drop OP TID PRN 06/11/17 [History] Cholecalciferol (D-3) [Vitamin D] 1,000 unit PO DAILY 06/11/17 [History] Lactulose 20 gm PO BID PRN 06/11/17 [History] Polyethylene Glycol 3350 [MiraLAX] 17 gm PO BID 06/11/17 [History] Ropinirole HCl [Requip] 2 mg PO BID 06/11/17 [History] Sennosides/Docusate Sodium [Senna Plus] 2 each PO DAILY 06/11/17 [History] Sertraline [Zoloft] 200 mg PO DAILY 06/11/17 [History] Simvastatin [Zocor] 40 mg PO HS 06/11/17 [History] Tiotropium [Spiriva] 18 mcg IH 0700 06/11/17 [History] traZODone [TraZODone] 50 mg PO HS 06/11/17 [History] Carbidopa/Levodopa 25/100 [Sinemet 25/100] 1 each PO TID tablet 06/13/17 [Rx] Gabapentin [Neurontin] 100 mg PO BID #4 capsule 06/13/17 [Rx] Tramadol HCl [Ultram] 50 mg PO TID PRN #3 tablet 06/13/17 [Rx] Allergy/AdvReac Type Severity Reaction Status Date / Time ciprofloxacin [From Cipro] AdvReac Itching Verified 03/09/18 23:57 All Systems PM: A 10-system review of systems was performed and is negative for pertinent findings except as documented above in the HPI. - Constitutional Constitutional: no chills, no fever(s), no night sweats - EENT Eyes: no change in vision, no discharge, no pain, no photophobia Ears: no ear discharge, no ear pain, no tinnitus Nose, mouth and throat: no dysphagia, no nasal discharge, no neck pain, no sore throat - Cardiovascular Cardiovascular ROS IM: no chest pain, no diaphoresis, no dyspnea, no lightheadedness, no palpitations, no syncope - Respiratory Respiratory: no cough, no dyspnea, no wheezing, no excessive phlegm production - Gastrointestinal Gastrointestinal: no abdominal pain, no diarrhea, no hematemesis, no hematochezia, no melena, no nausea, no vomiting - Musculoskeletal Musculoskeletal ROS IM: no numbness, no tingling - Integumentary Integumentary IM: no rash, no unusual bruising - Neurological Neurological ROS: no confusion, no convulsions, no focal weakness, no numbness, no tingling, no tremor(s) - Hematologic/Lymphatic Hematologic/Lymphatic: no easy bruising - Constitutional Vitals: Temp Pulse Resp BP Pulse Ox 98.1 F 80 15 124/71 97 05/03/18 22:01 05/03/18 22:01 05/03/18 22:01 05/03/18 22:01 05/03/18 22:01 Exam: General: Alert and oriented Skin:Normal color, no rash, no lesions. HEENT:EOM, pupils equal, round and reactive. Cardiovascular:Normal S1 & S2, no rubs, murmurs or gallops. No JVD. Pulse regular. Lungs:Normal breath sounds, no wheezes or crackles. Abdomen: Left lower quadrant abdominal pain tender to palpation. No rebound or guarding.. Extremities:No deformity, no edema or tenderness, no joint swelling or clubbing. Neurological:Normal cognition and motor skills. Pulses:Carotid and radial pulses normal +2. Rest of the physical exam is non contributory Internal Med - H&P Results - Labs CBC & Chem 7: 05/03/18 23:06 05/03/18 23:06 Labs: Short CBC 05/03/18 Range/Units 23:06 WBC 16.8 H (4.3-11.1) K/mcL Hgb 9.9 L (12.9-16.9) g/dL Hct 30.5 L (37.5-50.1) % Plt Count 171 (140-400) K/mcL Neutrophils # 14.6 H (1.6-8.9) K/mcL BMP 05/03/18 23:06 Sodium 137 Potassium 3.8 Chloride 105 Carbon Dioxide 23 BUN 26 H Creatinine 1.04 Glucose 183 H Calcium 8.4 L Liver Function 05/03/18 Range/Units 23:06 Total Bilirubin 0.3 (0.3-1.0) mg/dL AST 14 (13-39) Units/L ALT 6 L (7-52) Units/L Alkaline Phosphatase 63 (34-104) Units/L Albumin 3.4 L (3.5-5.7) g/dL - Assessment and plan (1) Abdominal pain Current Visit: Yes Status: Acute Assessment and plan: Left lower abdominal pain in the absence of rebound or guarding associated with nausea, vomiting, diarrhea. CT scan of the abdomen showed a complex collection in the right inguinal canal which is also associated with the right inguinal hernia representing a possible resolving hematoma versus abscess. Patient reports pain currently 5 out of 10. He received 1 dose of ceftriaxone and Flagyl as well as 1 L bolus prior to transfer from [place]. No further nausea or vomiting and is actually requesting to eat. Surgery has been consulted with a call placed to Dr. Martinez who requested the patient be made nothing by mouth after midnight and we will see the patient in the morning. Nothing by mouth from midnight Pain control Surgery to follow in the morning Qualifiers: Abdominal location: generalized Qualified Code(s): R10.84 - Generalized abdominal pain (2) Pneumonia Current Visit: No Status: Acute Assessment and plan: CT scan of the abdomen and pelvis revealed a left lower lobe consolidation concerning for pneumonia. Patient does have an elevated white blood cell count of 16. Patient received ceftriaxone at [place] prior to transfer. He currently does not endorse any shortness of breath or cough. We will obtain blood cultures as well as legionella and strep urine antigen. Qualifiers: Aspiration pneumonia type: unspecified Laterality: left Lung location: lower lobe of lung Qualified Code(s): J69.0 - Pneumonitis due to inhalation of food and vomit (3) Leukocytosis Current Visit: Yes Status: Acute Assessment and plan: Elevated white blood cell count with left shift of 16.8 which is up from 13.9 when initially assessed at [place] earlier today. Possible sources of infection or right inguinal collection which may represent hematoma versus an abscess as well as possible left lower lobe pneumonia. Patient received a dose of ceftriaxone and Flagyl. We will obtain blood cultures as well as urine Legionella and strep antigen. We will start patient on antibiotics with Zosyn and azithromycin. Qualifiers: Leukocytosis type: unspecified Qualified Code(s): D72.829 - Elevated white blood cell count, unspecified (4) HTN (hypertension) Current Visit: No Status: Chronic Assessment and plan: Blood pressure stable. We will monitor. Resume home antihypertensives. Qualifiers: Hypertension type: essential hypertension Qualified Code(s): I10 - Essential (primary) hypertension (5) Diabetes mellitus type 2 in nonobese Current Visit: No Status: Acute (6) COPD (chronic obstructive pulmonary disease) Current Visit: No Status: Chronic Qualifiers: COPD type: unspecified COPD Qualified Code(s): J44.9 - Chronic obstructive pulmonary disease, unspecified (7) Parkinson disease Current Visit: No Status: Chronic Assessment and plan: Continue all medications (8) DVT prophylaxis Current Visit: No Status: Acute Assessment and plan: Subcutaneous continue 7 - Time Spent With Patient Total time spent is greater than 50% in coordination of care (as documented) at patient's floor/unit and/or counseling patient:
[2018-05-04] MEDS ORDERED: D5% in Water 1,000 ML IVC PRN (01:45)
[2018-05-04] MEDS ORDERED: Dextrose Gel 15 GM/37.5 ML TUBE PO PRN ×2 (01:45)
[2018-05-04] MEDS ORDERED: *HR* Dextrose 50 % in Water (Syg) 50 ML SYRINGE IVP PRN (01:45)
[2018-05-04] MEDS: Insulin LISPRO 300 UNITS/3 ML VIAL SQ SCH ×4 (05:21→22:28)
[2018-05-04 06:52] LABS: Basophils % 0.3 %; Eosinophils # 0.1 K/mcL (0.0-0.6); Eosinophils % 0.5 %; Hematocrit 32.6 % (37.5-50.1); Hemoglobin 10.5 g/dL (12.9-16.9); Immature Granulocytes % 0.5 % (0-4); Lymphocytes # 1.3 K/mcL (0.6-4.6); Lymphocytes % 11.6 %; Mean Corpuscular HGB Conc 32.2 g/dL (31.6-35.5); Mean Corpuscular Hemoglobin 29.1 pg (28.0-33.3); Mean Corpuscular Volume 90.3 fL (83.0-100.0); Mean Platelet Volume 10.5 fL (9.4-12.4); Monocytes # 0.5 K/mcL (0.0-1.3); Monocytes % 4.3 %; Neutrophils # 9.5 K/mcL (1.6-8.9); Platelet Count 159 K/mcL (140-400); Red Blood Count 3.61 M/mcL (4.19-5.50); Red Cell Distribution Width 13.3 % (11.5-14.5); Segmented Neutrophils % 82.8 %
[2018-05-04 06:59] LABS: INR 1.5; Prothrombin Time 16.8 Seconds (9.4-12.1)
[2018-05-04] MEDS ORDERED: Azithromycin 500 MG in D5% in Water 250 ML IVPB ONE (08:00)
--- NOTE | 2018-05-04 09:45 | Internal Med Progress Note ---
<Tariq David S - Last Filed: 05/04/18 11:50> Hospitalist Progress Note - Encounter Date of Encounter: 05/04/18 Time of Encounter: 09:39 - Subjective Interval History: Mr. Ontiveros is a 72yo male admitted early on the 05/04. He has a PMH of T2DM, HTN, Parkinson's disease, HDL, and hx of CA, CAD with 9 stents. He presented with the cc of abdominal pain in the LLQ and is transferred from [place]. He states that over five days he had increasing abd pain assoc with nausea, vomting and diarrhea. He states that he had some chest pain too in the epigastric region, not similar to his last heart attack, and that there was no radiation. At [place], he had a CT abdomen showed a complex collection in the right inguinal, concerning for either hematoma or an abscess. A consolidative pneumonia was also seen on chest CT. The pt denies any sputum production but does have some coughing. He denies any fever/chills. He threw up last yesterday and has not had any episodes of vomiting this morning. He denies any blood in the vomit. He states that he still has some abdominal pain but that it has decreased in severity. His chest pain has largely resolved. The pt is seen at bedside, he is without complaint. His abd still has some crampy, dull pain but it has increased. He denies any N/V/D this morning. He denies SOB or chest pain this morning. - Exam Vitals: Temp Pulse Resp BP Pulse Ox 98.1 F 92 16 151/65 94 05/04/18 07:54 05/04/18 07:54 05/04/18 07:54 05/04/18 07:54 05/04/18 07:54 Exam: General: Alert and oriented Skin:Normal color, no rash, no lesions. HEENT:EOM, pupils equal, round and reactive. Cardiovascular:Normal S1 & S2, no rubs, murmurs or gallops. No JVD. Pulse regular. Lungs:Normal breath sounds, no wheezes or crackles. Abdomen: Left lower quadrant abdominal pain tender to palpation. No rebound or guarding.. Extremities:No deformity, no edema or tenderness, no joint swelling or clubbing. Neurological:Normal cognition and motor skills. Pulses:Carotid and radial pulses normal +2. Rest of the physical exam is non contributory - Assessment and Plan (1) Abdominal pain Current Visit: Yes Status: Acute Assessment and Plan: Most likely secondary to resolving hematoma vs abscess in right inguinal canal Pt has pain in the LLQ without rebound or guarding - has assoc N/V/D - was given 1 dose rocephin and flagyl at [place] CT scan from admission - showed a complex collection in the right inguinal canal, resolving hematoma versus abscess. Plan: - surgery consulted, to see this morning NPO this morning, CLD now as per surgery Sx doesn't recommend acute surgical intervention Aggressive bowel regimen as per surgery - pain control - zosyn day 1, azithromycin was given once (2) Pneumonia Current Visit: No Status: Acute Assessment and Plan: CT scan of the abdomen and pelvis revealed a left lower lobe consolidation concerning for pneumonia. - pt WBC count 16.8 on admission, 11.5 this morning - was given 1 dose of rocephin at [place] Plan: - blood cx pending - legionella/strep antigens pending - continue zosyn day 1, one dose of azithromycin given - keep O2 sat >92% (3) COPD (chronic obstructive pulmonary disease) Current Visit: No Status: Chronic Assessment and Plan: See plan as above for pneumonia (4) HTN (hypertension) Current Visit: No Status: Chronic Assessment and Plan: 151/65 - Blood pressure stable. - continue home antihypertensives (5) Parkinson disease Current Visit: No Status: Chronic Assessment and Plan: Continue home medications (6) Diabetes mellitus type 2 in nonobese Current Visit: No Status: Acute Assessment and Plan: POC glucose 98 this morning - ISS (7) DVT prophylaxis Current Visit: No Status: Acute Assessment and Plan: Subcutaneous heparin (8) Leukocytosis Current Visit: Yes Status: Acute Assessment and Plan: 16.8 on admission, 11.5 this morning - most likely secondary to right inguinal abscess vs lower left lobe pneumonia - see plan as above for pneumonia (9) Smoker Current Visit: No Status: Chronic Assessment and Plan: Smokes 1ppd - counsled (10) Hyperlipidemia Current Visit: No Status: Chronic Assessment and Plan: on Zocor - chronic - Time Spent with Patient Total time spent is greater than 50% in coordination of care (as documented) at patient's floor/unit and/or counseling patient: less than 15 minutes Plan of Care Discussed with: patient Internal Medicine: Result - Labs CBC & Chem 7: 05/04/18 06:32 05/03/18 23:06 Labs: Short CBC 05/03/18 05/04/18 Range/Units 23:06 06:32 WBC 16.8 H 11.5 H (4.3-11.1) K/mcL Hgb 9.9 L 10.5 L (12.9-16.9) g/dL Hct 30.5 L 32.6 L (37.5-50.1) % Plt Count 171 159 (140-400) K/mcL Neutrophils # 14.6 H 9.5 H (1.6-8.9) K/mcL BMP 05/03/18 23:06 Sodium 137 Potassium 3.8 Chloride 105 Carbon Dioxide 23 BUN 26 H Creatinine 1.04 Glucose 183 H Calcium 8.4 L Liver Function 05/03/18 Range/Units 23:06 Total Bilirubin 0.3 (0.3-1.0) mg/dL AST 14 (13-39) Units/L ALT 6 L (7-52) Units/L Alkaline Phosphatase 63 (34-104) Units/L Albumin 3.4 L (3.5-5.7) g/dL - ABG Interpretation ABG results: PT/INR, D-dimer PT 16.8 Seconds (9.4-12.1) H 05/04/18 06:32 Consult Discharge Plan - Plan Referrals: NONE,PCP [Primary Care Provider] - <Ilsa Aaron - Last Filed: 05/04/18 16:27> Hospitalist Progress Note - Encounter Date of Encounter: 05/04/18 - Exam Vitals: Temp Pulse Resp BP Pulse Ox 98.2 F 68 16 128/76 94 05/04/18 14:41 05/04/18 14:41 05/04/18 14:41 05/04/18 14:41 05/04/18 14:41 - Assessment and Plan (1) COPD (chronic obstructive pulmonary disease) Current Visit: No Status: Chronic (2) HTN (hypertension) Current Visit: No Status: Chronic (3) Parkinson disease Current Visit: No Status: Chronic (4) Diabetes mellitus type 2 in nonobese Current Visit: No Status: Acute (5) DVT prophylaxis Current Visit: No Status: Acute (6) Pneumonia Current Visit: No Status: Acute (7) Abdominal pain Current Visit: Yes Status: Acute (8) Leukocytosis Current Visit: Yes Status: Acute (9) Smoker Current Visit: No Status: Chronic (10) Hyperlipidemia Current Visit: No Status: Chronic - Time Spent with Patient Total time spent is greater than 50% in coordination of care (as documented) at patient's floor/unit and/or counseling patient: Internal Medicine: Result - Labs CBC & Chem 7: 05/04/18 06:32 05/03/18 23:06 Labs: Short CBC 05/03/18 05/04/18 Range/Units 23:06 06:32 WBC 16.8 H 11.5 H (4.3-11.1) K/mcL Hgb 9.9 L 10.5 L (12.9-16.9) g/dL Hct 30.5 L 32.6 L (37.5-50.1) % Plt Count 171 159 (140-400) K/mcL Neutrophils # 14.6 H 9.5 H (1.6-8.9) K/mcL BMP 05/03/18 23:06 Sodium 137 Potassium 3.8 Chloride 105 Carbon Dioxide 23 BUN 26 H Creatinine 1.04 Glucose 183 H Calcium 8.4 L Liver Function 05/03/18 Range/Units 23:06 Total Bilirubin 0.3 (0.3-1.0) mg/dL AST 14 (13-39) Units/L ALT 6 L (7-52) Units/L Alkaline Phosphatase 63 (34-104) Units/L Albumin 3.4 L (3.5-5.7) g/dL - ABG Interpretation ABG results: PT/INR, D-dimer PT 16.8 Seconds (9.4-12.1) H 05/04/18 06:32 - Attending Attestation I have seen and independently assessed this patient and agree with plan per resident Plan Inguinal Canal abscess vs hematoma with abdominal pain. Surgery following and recommend conservative management for now Comunity acquired pneumonia. Continue zosyn (which would provide coverage for abscess as well if present) <DavidTariq S - Last Filed: 05/04/18 11:50> (1) Abdominal pain Qualifiers: Abdominal location: generalized Qualified Code(s): R10.84 - Generalized abdominal pain (2) Pneumonia Qualifiers: Aspiration pneumonia type: unspecified Laterality: left Lung location: lower lobe of lung (3) COPD (chronic obstructive pulmonary disease) Qualifiers: COPD type: unspecified COPD Qualified Code(s): J44.9 - Chronic obstructive pulmonary disease, unspecified (4) HTN (hypertension) Qualifiers: Hypertension type: essential hypertension Qualified Code(s): I10 - Essential (primary) hypertension (8) Leukocytosis Qualifiers: Leukocytosis type: unspecified Qualified Code(s): D72.829 - Elevated white blood cell count, unspecified (10) Hyperlipidemia Qualifiers: Hyperlipidemia type: unspecified Qualified Code(s): E78.5 - Hyperlipidemia, unspecified <Folaranmi,Supo A - Last Filed: 05/04/18 16:27> (1) COPD (chronic obstructive pulmonary disease) Qualifiers: COPD type: unspecified COPD Qualified Code(s): J44.9 - Chronic obstructive pulmonary disease, unspecified (2) HTN (hypertension) Qualifiers: Hypertension type: essential hypertension Qualified Code(s): I10 - Essential (primary) hypertension (6) Pneumonia Qualifiers: Aspiration pneumonia type: unspecified Laterality: left Lung location: lower lobe of lung (7) Abdominal pain Qualifiers: Abdominal location: generalized Qualified Code(s): R10.84 - Generalized abdo nissa pain (8) Leukocytosis Qualifiers: Leukocytosis type: unspecified Qualified Code(s): D72.829 - Elevated white blood cell count, unspecified (10) Hyperlipidemia Qualifiers: Hyperlipidemia type: unspecified Qualified Code(s): E78.5 - Hyperlipidemia, unspecified
--- NOTE | 2018-05-04 10:51 | General Surgery Consult Note ---
Addendum entered and electronically signed by Margarita Gamboa CNP 05/04/18 15:27: Continue conservative/supportive measures as below. Original Note: Date of Encounter: 05/04/18 Time of Encounter: 09:00 Assessment and Plan (1) Abnormal CT of the abdomen Current Visit: Yes Status: Acute CT of the abdomen and pelvis without contrast noted complex fluid collection in the right inguinal canal measuring 7 x 4.2 cm could possibly represent hematoma or abscess (detailed below) although patient denies recent falls, he is noted to use a walker at baseline and appears generally weak so this is certainly a possibility. His INR is unremarkable and Hgb is stable. His WBC is elevated at 11.5 9down from 16.8). he endorses and appetite. There is no evident hernia noted. Plan: Conservative measures given unclear evidence of either hematoma vs abscess and lack of evidence of hernia. Aggressive constipation management per primary team serial abdominal exams No acute surgical indication at this time. surgery will follow along and assess progress; will collaborate with attending- Further recommendations pending CT/CT abd pelvis w iv no oral IMPRESSION: 1. Left lower lobe consolidative pneumonia. 2. Complex collection in the right inguinal canal which is also associated with the right inguinal hernia. This may represent a resolving hematoma or possibly an abscess. 3. Evidence of constipation but no bowel obstruction or perforation. (2) Constipation Current Visit: Yes Status: Acute Constipation noted on CT. Likely exacerbated by anticholinergics. Patient is noted to take MiraLAX lactulose and Senna sites at home for constipation. He reports only clear liquid stool for the last 3 days. Would recommend aggressive treatment for constipation. Qualifiers: Constipation type: drug induced constipation Qualified Code(s): K59.03 - Drug induced constipation (3) Community acquired pneumonia Current Visit: Yes Status: Acute Management per primary team Qualifiers: Laterality: left Lung location: lower lobe of lung Qualified Code(s): J18.1 - Lobar pneumonia, unspecified organism (4) Smoker Current Visit: No Status: Chronic History of Present Illness Consult date: 05/03/18 (Dr. Hermilo Waggoner) Reason for consult: abdominal pain Requesting physician: Aldo Rowe History of present illness: -Surgery (Dr. Waggoner) has been consulted for recommendations regarding Complex collection in the left inguinal region/hernia (however, noted per cT the area concerning is the RIGHT groin). -Patient's PMH, PSH, and past social history have been reviewed per the EMR and updated where indicated Mr Ontiveros is a 72 male with a past medical history of smoking addiction, COPD, ASHD, diabetes, hypertension, CVA and AR (surgical history including angioplasty and stent x9 at [facility]) who presented on 05/03/2018 with complaints of abdominal pain 7 out of 10, aching and cramping, associated "rumbling and growling,", nausea, vomiting, diarrhea (clear liquid for 3 days). He was seen at [place] emergency department at which time a CT scan of the abdomen was performed which noted a complex fluid collection in the right inguinal area concerning for hematoma or abscess. He denies any abdominal surgical history. He denies recent falls. He reports his last colonoscopy was approximately 4 years ago at [facility] and was unremarkable. He denies fever, chills, CP. He endorses shortness of breath, cough, difficulty urinating, GI symtpoms as previously described, and feeling generally week. He was also noted to have consolidated pneumonia in the left lower lobe. Past Med Surg Social Fam HX - Past Medical History Source: patient Medical history: COPD, coronary artery disease, diabetes, hyperlipidemia, hypertension, myocardial infarction Additional medical history: STROKE , USES WALKER AT HOME Psychiatric history: no psych history - Past Surgical History Surgical History: angioplasty/stent Additional surgical history: scope to check pancreas, X 9 CARDIAC STENTS AND SEES AX [employer] WORK[employer] AT [facility] - Social History Smoking Status: Current every day smoker Smokeless Tobacco Status: No Alcohol use: none Drug use: none Occupational status: unemployed Activity Level: Uses cane/walker Recent Out of Country Travel Within the Last 8 Weeks: No Exposure or Possible Exposure to Illness During Travel: No - Family History Father Hx Family Cancer: Yes (lung) Medications and Allergies Buspirone HCl [Buspar] 10 mg PO BID 06/11/17 [History] Carboxymethylcellulose Sodium [Refresh Liquigel] 1 drop OP TID PRN 06/11/17 [History] Cholecalciferol (D-3) [Vitamin D] 1,000 unit PO DAILY 06/11/17 [History] Lactulose 20 gm PO BID PRN 06/11/17 [History] Polyethylene Glycol 3350 [MiraLAX] 17 gm PO BID 06/11/17 [History] Ropinirole HCl [Requip] 2 mg PO BID 06/11/17 [History] Sennosides/Docusate Sodium [Senna Plus] 2 each PO DAILY 06/11/17 [History] Sertraline [Zoloft] 200 mg PO DAILY 06/11/17 [History] Simvastatin [Zocor] 40 mg PO HS 06/11/17 [History] Tiotropium [Spiriva] 18 mcg IH 0700 06/11/17 [History] traZODone [TraZODone] 50 mg PO HS 06/11/17 [History] Carbidopa/Levodopa 25/100 [Sinemet 25/100] 1 each PO TID tablet 06/13/17 [Rx] Gabapentin [Neurontin] 100 mg PO BID #4 capsule 06/13/17 [Rx] Tramadol HCl [Ultram] 50 mg PO TID PRN #3 tablet 06/13/17 [Rx] Allergy/AdvReac Type Severity Reaction Status Date / Time ciprofloxacin [From Cipro] AdvReac Itching Verified 03/09/18 23:57 Review of Systems All systems PM: reviewed and no additional remarkable complaints except as stated All systems PM: The remainder of the systems were reviewed and are negative General Surgery Exam Initial Vital Signs Temp Pulse Resp BP Pulse Ox 98.1 F 80 15 124/71 97 05/03/18 22:01 05/03/18 22:01 05/03/18 22:01 05/03/18 22:01 05/03/18 22:01 VITAL SIGNS: Reviewed. See [facility] GENERAL: In no apparent distress. HEENT: Normocephalic, atraumatic, oropharynx is pink and moist, poor dentition, there is no neck adenopathy or JVD noted. CHEST/RESPIRATORY: The thorax is free from signs of trauma. Lung sounds: Decreased breath sounds, decrease resp effort, musical crackles in the LLL CARDIAC: Regular rate and rhythm. Normal S1 and S2, with murmur noted. VASCULAR: No Edema. 2+ peripheral pulses. ABDOMEN: soft, active bowel sounds, involuntary guarding, right lower and left lower quadrant tenderness MUSCULOSKELETAL: resting tremor right upper extremity noted. NEUROLOGIC EXAM: Alert and oriented x 3. Speech normal. Follows commands. PSYCHIATRIC: Mood normal. SKIN: No evidence of trauma noted. Exam Initial Vital Signs Temp Pulse Resp BP Pulse Ox 98.1 F 80 15 124/71 97 05/03/18 22:01 05/03/18 22:01 05/03/18 22:01 05/03/18 22:01 05/03/18 22:01 Results - Labs 05/04/18 06:32 05/03/18 23:06 Abnormal lab results WBC 11.5 K/mcL (4.3-11.1) H 05/04/18 06:32 RBC 3.61 M/mcL (4.19-5.50) L 05/04/18 06:32 Hgb 10.5 g/dL (12.9-16.9) L 05/04/18 06:32 Hct 32.6 % (37.5-50.1) L 05/04/18 06:32 Neutrophils # 9.5 K/mcL (1.6-8.9) H 05/04/18 06:32 PT 16.8 Seconds (9.4-12.1) H 05/04/18 06:32 BUN 26 mg/dL (8-23) H 05/03/18 23:06 Glucose 183 mg/dL (70-105) H 05/03/18 23:06 Calcium 8.4 mg/dL (8.6-10.3) L 05/03/18 23:06 ALT 6 Units/L (7-52) L 05/03/18 23:06 Serum Total Protein 6.0 g/dL (6.4-8.9) L 05/03/18 23:06 Albumin 3.4 g/dL (3.5-5.7) L 05/03/18 23:06 Diabetes panel 05/03/18 Range/Units 23:06 Sodium 137 (136-145) mEq/L Potassium 3.8 (3.5-5.1) mEq/L Chloride 105 (98-107) mEq/L Carbon Dioxide 23 (23-29) mEq/L BUN 26 H (8-23) mg/dL Creatinine 1.04 (0.70-1.30) mg/dL Glucose 183 H (70-105) mg/dL Calcium 8.4 L (8.6-10.3) mg/dL AST 14 (13-39) Units/L ALT 6 L (7-52) Units/L Alkaline Phosphatase 63 (34-104) Units/L Albumin 3.4 L (3.5-5.7) g/dL Calcium panel 05/03/18 Range/Units 23:06 Calcium 8.4 L (8.6-10.3) mg/dL Albumin 3.4 L (3.5-5.7) g/dL Pituitary panel 05/03/18 Range/Units 23:06 Sodium 137 (136-145) mEq/L Potassium 3.8 (3.5-5.1) mEq/L Chloride 105 (98-107) mEq/L Carbon Dioxide 23 (23-29) mEq/L BUN 26 H (8-23) mg/dL Creatinine 1.04 (0.70-1.30) mg/dL Glucose 183 H (70-105) mg/dL Calcium 8.4 L (8.6-10.3) mg/dL Adrenal panel 05/03/18 Range/Units 23:06 Sodium 137 (136-145) mEq/L Potassium 3.8 (3.5-5.1) mEq/L Chloride 105 (98-107) mEq/L Carbon Dioxide 23 (23-29) mEq/L BUN 26 H (8-23) mg/dL Creatinine 1.04 (0.70-1.30) mg/dL Glucose 183 H (70-105) mg/dL Calcium 8.4 L (8.6-10.3) mg/dL Total Bilirubin 0.3 (0.3-1.0) mg/dL AST 14 (13-39) Units/L ALT 6 L (7-52) Units/L Alkaline Phosphatase 63 (34-104) Units/L Albumin 3.4 L (3.5-5.7) g/dL All other labs normal. - Imaging CT scan - abdomen: report reviewed, image reviewed CT scan - pelvis: report reviewed, image reviewed Consult Discharge Plan - Plan Referrals: NONE,PCP [Primary Care Provider] -
[2018-05-04] MEDS: Piperacillin/Tazobactam 3.375 GM in 0.9 % Sodium Chloride Mini Bag 100 ML IVPB SCH ×2 (10:56→18:27)
[2018-05-04] MEDS: D5% in Water 1,000 ML IVC SCH (11:18)
[2018-05-04] MEDS ORDERED: Insulin LISPRO 300 UNITS/3 ML VIAL SQ SCH (12:00)
[2018-05-04] MEDS ORDERED: traMADol 50 MG TABLET PO PRN (14:43)
[2018-05-04] MEDS: Carbidopa/Levodopa 25/100 TABLET PO SCH ×2 (18:25→19:56)
[2018-05-04] MEDS: rOPINIRole 1 MG TABLET PO SCH (19:56)
[2018-05-04] MEDS: Gabapentin 100 MG CAPSULE PO SCH (19:57)
[2018-05-05] MEDS: D5% in Water 1,000 ML IVC SCH (00:22)
[2018-05-05] MEDS: Piperacillin/Tazobactam 3.375 GM in 0.9 % Sodium Chloride Mini Bag 100 ML IVPB SCH ×3 (00:23→16:17)
[2018-05-05] MEDS: *HR* Heparin 5,000 UNIT/ML VIAL SQ SCH ×3 (00:26→16:16)
[2018-05-05 06:02] LABS: Basophils % 0.2 %; Eosinophils # 0.1 K/mcL (0.0-0.6); Hematocrit 34.3 % (37.5-50.1); Hemoglobin 11.1 g/dL (12.9-16.9); Immature Granulocytes % 0.4 % (0-4); Lymphocytes # 1.3 K/mcL (0.6-4.6); Mean Corpuscular HGB Conc 32.4 g/dL (31.6-35.5); Mean Corpuscular Hemoglobin 29.6 pg (28.0-33.3); Mean Corpuscular Volume 91.5 fL (83.0-100.0); Mean Platelet Volume 10.4 fL (9.4-12.4); Monocytes # 0.6 K/mcL (0.0-1.3); Monocytes % 5.9 %; Neutrophils # 7.3 K/mcL (1.6-8.9); Platelet Count 168 K/mcL (140-400); Red Blood Count 3.75 M/mcL (4.19-5.50); Red Cell Distribution Width 13.6 % (11.5-14.5); Segmented Neutrophils % 78.5 %
[2018-05-05 06:24] LABS: BUN/Creatinine Ratio 20 (6-26); Blood Urea Nitrogen 20 mg/dL (8-23); Calcium 9.1 mg/dL (8.6-10.3); Carbon Dioxide 28 mEq/L (23-29); Chloride 103 mEq/L (98-107); Glucose 201 mg/dL (70-105); Osmolality,Calculated 294 (280-300); Potassium 4.2 mEq/L (3.5-5.1); Sodium 138 mEq/L (136-145); eGFR For Non-African Americans > 60 (> 60)
--- NOTE | 2018-05-05 07:48 | Internal Med Progress Note ---
Hospitalist Progress Note - Encounter Date of Encounter: 05/05/18 Time of Encounter: 07:45 - Subjective Interval History: Patient with history of Parkinson, diabetes, CVA, COPD, hypertension, high cholesterol patient admitted transfer from [facility] due to abdominal pain nausea vomiting and diarrhea CT showing inguinal hematoma versus abscess also d iagnosed with left lower lobe pneumonia patient seen and followed conservatively by surgery. Also noted to be constipated and get bowel prep for the constipation and he is now having bowel movements today patient said he feels fine has some mild cough no fever or chills no abdominal pain surgical follow- up will be done today white count is coming down - Exam Vitals: Temp Pulse Resp BP Pulse Ox 97.9 F 78 15 144/68 98 05/05/18 06:59 05/05/18 06:59 05/05/18 06:59 05/05/18 06:59 05/05/18 06:59 Exam: General: Alert and oriented Skin:Normal color, no rash, no lesions. HEENT:EOM, pupils equal, round and reactive. Cardiovascular:Normal S1 & S2, no rubs, murmurs or gallops. No JVD. Pulse regular. Lungs:Normal breath sounds, no wheezes or crackles. Abdomen: Left lower quadrant abdominal pain tender to palpation. No rebound or guarding.. Extremities:No deformity, no edema or tenderness, no joint swelling or clubbing. Neurological:Normal cognition and motor skills. Pulses:Carotid and radial pulses normal +2. Rest of the physical exam is non contributory - Assessment and Plan (1) COPD (chronic obstructive pulmonary disease) Current Visit: No Status: Chronic Assessment and Plan: No active wheezing has pneumonia white count is coming down (2) HTN (hypertension) Current Visit: No Status: Chronic Assessment and Plan: Well-controlled (3) Dyslipidemia Current Visit: No Status: Chronic (4) Parkinson disease Current Visit: No Status: Chronic Assessment and Plan: Chronic continue home medication (5) Diabetes mellitus type 2 in nonobese Current Visit: No Status: Chronic Assessment and Plan: Continue current sliding scale (6) Leukocytosis Current Visit: Yes Status: Acute Assessment and Plan: Patient on Zosyn white count is coming down (7) Hyperlipidemia Current Visit: No Status: Chronic (8) Constipation Current Visit: Yes Status: Acute Assessment and Plan: Patient receiving bowel prep and responding not having bowel movement (9) Abnormal CT of the abdomen Current Visit: Yes Status: Acute Assessment and Plan: Surgical service is following conservative measure at present (10) Community acquired pneumonia Current Visit: Yes Status: Acute Assessment and Plan: Continue on Zosyn chronically first better - Time Spent with Patient Total time spent is greater than 50% in coordination of care (as documented) at patient's floor/unit and/or counseling patient: Internal Medicine: Result - Labs CBC & Chem 7: 05/05/18 05:52 05/05/18 05:52 Labs: Short CBC 05/05/18 Range/Units 05:52 WBC 9.4 (4.3-11.1) K/mcL Hgb 11.1 L (12.9-16.9) g/dL Hct 34.3 L (37.5-50.1) % Plt Count 168 (140-400) K/mcL Neutrophils # 7.3 (1.6-8.9) K/mcL BMP 05/05/18 05:52 Sodium 138 Potassium 4.2 Chloride 103 Carbon Dioxide 28 BUN 20 Creatinine 1.01 Glucose 201 H Calcium 9.1 - ABG Interpretation ABG results: PT/INR, D-dimer PT 16.8 Seconds (9.4-12.1) H 05/04/18 06:32 Consult Discharge Plan - Plan Referrals: NONE,PCP [Primary Care Provider] - (1) COPD (chronic obstructive pulmonary disease) Qualifiers: COPD type: unspecified COPD Qualified Code(s): J44.9 - Chronic obstructive pulmonary disease, unspecified (2) HTN (hypertension) Qualifiers: Hypertension type: essential hypertension Qualified Code(s): I10 - Essential (primary) hypertension (6) Leukocytosis Qualifiers: Leukocytosis type: unspecified Qualified Code(s): D72.829 - Elevated white blood cell count, unspecified (7) Hyperlipidemia Qualifiers: Hyperlipidemia type: unspecified Qualified Code(s): E78.5 - Hyperlipidemia, unspecified (8) Constipation Qualifiers: Constipation type: drug induced constipation Qualified Code(s): K59.03 - Drug induced constipation (10) Community acquired pneumonia Qualifiers: Laterality: left Lung location: lower lobe of lung Qualified Code(s): J18.1 - Lobar pneumonia, unspecified organism
[2018-05-05] MEDS: Insulin LISPRO 300 UNITS/3 ML VIAL SQ SCH ×4 (08:27→20:36)
[2018-05-05] MEDS: Carbidopa/Levodopa 25/100 TABLET PO SCH ×3 (08:30→20:39)
[2018-05-05] MEDS: Gabapentin 100 MG CAPSULE PO SCH (08:30)
[2018-05-05] MEDS: rOPINIRole 1 MG TABLET PO SCH ×2 (08:30→20:39)
--- NOTE | 2018-05-05 10:29 | Event Note ---
Date of Encounter: 05/05/18 Time of Encounter: 09:00 Surgery consulted on patient for possible right inguinal abscess vs hematoma on CT scan. Patient seen and examined this morning. Patient denies inguinal pain, inguinal swelling, fevers/chills, abdominal pain, nausea, vomiting. He admits to having BMs. He is tolerating his diet with no complications. Unable to appreciate any inguinal swelling or hernia on exam. WBC normalized at 9.4, lactic acid normal at 1.4. No acute surgical intervention at this time. Surgery will sign off, thank you for the consult.
[2018-05-05] MEDS: Sennosides/Docusate Sodium TABLET PO SCH (12:40)
[2018-05-05] MEDS ORDERED: traZODone 50 MG TABLET PO SCH (21:00)
[2018-05-06] MEDS: *HR* Heparin 5,000 UNIT/ML VIAL SQ SCH ×2 (00:18→07:59)
[2018-05-06] MEDS: Piperacillin/Tazobactam 3.375 GM in 0.9 % Sodium Chloride Mini Bag 100 ML IVPB SCH (00:19)
[2018-05-06 05:51] LABS: Hematocrit 33.5 % (37.5-50.1); Hemoglobin 10.7 g/dL (12.9-16.9); Mean Corpuscular HGB Conc 31.9 g/dL (31.6-35.5); Mean Corpuscular Hemoglobin 28.9 pg (28.0-33.3); Mean Corpuscular Volume 90.5 fL (83.0-100.0); Mean Platelet Volume 10.6 fL (9.4-12.4); Platelet Count 175 K/mcL (140-400); Red Cell Distribution Width 13.3 % (11.5-14.5)
[2018-05-06 06:58] VITALS: BP 179/77
--- NOTE | 2018-05-06 07:39 | Discharge Summary ---
Orders not resulted at time of discharge: Pending orders 05/04/18 01:37 Legionella Antigen [RM] Routine Streptococcal pneumoniae urin antigen [S. Pneumoniae Antigen] [RM] Routine 05/04/18 06:39 Culture,Blood [] AM 0400 Date of Encounter: 05/06/18 Time of Encounter: 07:37 - Discharge Diagnosis (1) COPD (chronic obstructive pulmonary disease) Priority: Secondary Status: Chronic Assessment and Plan: no active wheezing Qualifiers: COPD type: unspecified COPD Qualified Code(s): J44.9 - Chronic obstructive pulmonary disease, unspecified (2) HTN (hypertension) Priority: Secondary Status: Chronic Assessment and Plan: continue on home meds Qualifiers: Hypertension type: essential hypertension Qualified Code(s): I10 - Essential (primary) hypertension (3) Dyslipidemia Priority: Secondary Status: Chronic Assessment and Plan: chronic (4) Parkinson disease Priority: Secondary Status: Chronic (5) Diabetes mellitus type 2 in nonobese Priority: Secondary Status: Chronic (6) Leukocytosis Priority: Secondary Status: Resolved Assessment and Plan: resolving Qualifiers: Leukocytosis type: unspecified Qualified Code(s): D72.829 - Elevated white blood cell count, unspecified (7) Hyperlipidemia Priority: Secondary Status: Chronic Qualifiers: Hyperlipidemia type: unspecified Qualified Code(s): E78.5 - Hyperlipidemia, unspecified (8) Constipation Priority: Secondary Status: Resolved Assessment and Plan: solving Qualifiers: Constipation type: drug induced constipation Qualified Code(s): K59.03 - Drug induced constipation (9) Abnormal CT of the abdomen Priority: Primary Status: Acute Assessment and Plan: see surgical evaluation anf follow up no surgical abdomen (10) Community acquired pneumonia Priority: Secondary Status: Acute Assessment and Plan: clinically better will dc on levaquin x 10 days Qualifiers: Laterality: left Lung location: lower lobe of lung Qualified Code(s): J18.1 - Lobar pneumonia, unspecified organism Hospital course: Mr. Ontiveros is a 72 year old male Patient with history of Parkinson, diabetes, CVA, COPD, hypertension and high cholesterol patient was transferred from [place] due to abdominal pain nausea vomiting and diarrhea which is now resolved patient had a CT of the abdomen showing possible inguinal hematoma versus abscess also left lower lobe pneumonia patient was seen by surgery please see surgical evaluation for detail and surgery signed off after follow up evaluation Says no surgical abdomen patient is now clinically better no more nausea and vomited I will prescribe another 10 days of Levaquin for pneumonia white count is down to normal patient clinically much better. - Time Spent with Patient Total time spent providing and/or coordinating discharge services: Greater than 30 minutes - Discharge Medications Prescriptions: levoFLOXacin [Levaquin] 750 mg PO DAILY #10 tablet Home Medications: Carboxymethylcellulose Sodium [Refresh Liquigel] 1 drop OP TID PRN 06/11/17 [History] Cholecalciferol (D-3) [Vitamin D] 1,000 unit PO DAILY 06/11/17 [History] Ropinirole HCl [Requip] 2 mg PO BID 06/11/17 [History] Sennosides/Docusate Sodium [Senna Plus] 2 each PO DAILY 06/11/17 [History] Sertraline [Zoloft] 200 mg PO DAILY 06/11/17 [History] Simvastatin [Zocor] 40 mg PO HS 06/11/17 [History] Tiotropium [Spiriva] 18 mcg IH 0700 06/11/17 [History] traZODone [TraZODone] 50 mg PO HS 06/11/17 [History] Carbidopa/Levodopa 25/100 [Sinemet 25/100] 1 each PO TID tablet 06/13/17 [Rx] Aspirin [Adult Aspirin] 81 mg PO DAILY 05/04/18 [History] Atorvastatin [Lipitor] 40 mg PO HS 05/04/18 [History] BuPROPion XL (24 HR) [Wellbutrin Xl] 300 mg PO DAILY 05/04/18 [History] Clopidogrel [Plavix] 75 mg PO DAILY 05/04/18 [History] Ipratropium [ATROVENT Inhaler] 2 puff IH Q6H 05/04/18 [History] Metoprolol Succinate [Toprol Xl] 25 mg PO DAILY 05/04/18 [History] Nitroglycerin [Nitrostat] 0.4 mg SL Q5M PRN 05/04/18 [History] Ondansetron HCl [Zofran] 4 mg PO DAILY 05/04/18 [History] Tramadol HCl [Ultram] 100 mg PO QID PRN 05/04/18 [History] levoFLOXacin [Levaquin] 750 mg PO DAILY #10 tablet 05/06/18 [Rx] Allergies/Adverse Reactions: Allergy/AdvReac Type Severity Reaction Status Date / Time ciprofloxacin [From Cipro] AdvReac Itching Verified 03/09/18 23:57 Date of admission: 05/03/18 20:08 Primary care physician: PCP NONE Consults: 05/03/18 22:57 Consult to Surgery [CONS] Routine Consulting Provider: [facility] Reason for Consult: Complex collection in the left inguinal region/hernia Call Completed: No 05/04/18 08:56 Consult to Nutrition [CONS] Routine Comment: Consulting Provider: NUTRITION Reason for Dietary Consult: PO Supplementation Discharging clinician: Efra Fragoso Anticipated date of discharge: 05/06/18 - Constitutional Vitals: Temp Pulse Resp BP Pulse Ox 97.9 F 87 16 179/77 94 05/06/18 06:54 05/06/18 06:54 05/06/18 06:54 05/06/18 06:54 05/06/18 06:54 Exam: General: Alert and oriented Skin:Normal color, no rash, no lesions. HEENT:EOM, pupils equal, round and reactive. Cardiovascular:Normal S1 & S2, no rubs, murmurs or gallops. No JVD. Pulse regular. Lungs:Normal breath sounds, no wheezes or crackles. Abdomen: Left lower quadrant abdominal pain tender to palpation. No rebound or guarding.. Extremities:No deformity, no edema or tenderness, no joint swelling or clubbing. Neurological:Normal cognition and motor skills. Pulses:Carotid and radial pulses normal +2. Rest of the physical exam is non contributory - Patient Status Disposition: Home Health Service Condition: Good Functional capacity at discharge: independent ambulation Overall status at discharge: patient is progressing back to baseline - Discharge Instructions - Diet and Activity Activity: other Diet: advance to your usual diet
[2018-05-06] MEDS: Insulin LISPRO 300 UNITS/3 ML VIAL SQ SCH (08:00)
[2018-05-06] MEDS: Carbidopa/Levodopa 25/100 TABLET PO SCH (08:27)
[2018-05-06] MEDS: rOPINIRole 1 MG TABLET PO SCH (08:27)
[2018-05-06] MEDS: Sennosides/Docusate Sodium TABLET PO SCH (08:28)
--- NOTE | 2018-05-06 08:37 | Physician Discharge Referral ---
Home Health/Hosp Referral Info Provider in Charge Post Discharge: PCP - Diagnosis (1) COPD (chronic obstructive pulmonary disease) Status: Chronic (2) HTN (hypertension) Status: Chronic (3) Dyslipidemia Status: Chronic (4) Parkinson disease Status: Chronic (5) Diabetes mellitus type 2 in nonobese Status: Chronic (6) Leukocytosis Status: Resolved (7) Hyperlipidemia Status: Chronic (8) Constipation Status: Resolved (9) Abnormal CT of the abdomen Status: Acute (10) Community acquired pneumonia Status: Acute - Respiratory Orders Smoking Cessation: Smoking cessation has been advised. For more information, call the [place] Tobacco Quit Line at 5-493-UHVU-NOW. - Services Needed Following services are medically necessary services: Nursing, Home Health Aide, Physical Therapy - Transfer Medications Prescriptions: Azithromycin [Zithromax] 500 mg PO DAILY #10 tablet levoFLOXacin [Levaquin] 750 mg PO DAILY #10 tablet Home Medications: Carboxymethylcellulose Sodium [Refresh Liquigel] 1 drop OP TID PRN 06/11/17 [History] Cholecalciferol (D-3) [Vitamin D] 1,000 unit PO DAILY 06/11/17 [History] Ropinirole HCl [Requip] 2 mg PO BID 06/11/17 [History] Sennosides/Docusate Sodium [Senna Plus] 2 each PO DAILY 06/11/17 [History] Sertraline [Zoloft] 200 mg PO DAILY 06/11/17 [History] Simvastatin [Zocor] 40 mg PO HS 06/11/17 [History] Tiotropium [Spiriva] 18 mcg IH 0700 06/11/17 [History] traZODone [TraZODone] 50 mg PO HS 06/11/17 [History] Carbidopa/Levodopa 25/100 [Sinemet 25/100] 1 each PO TID tablet 06/13/17 [Rx] Aspirin [Adult Aspirin] 81 mg PO DAILY 05/04/18 [History] Atorvastatin [Lipitor] 40 mg PO HS 05/04/18 [History] BuPROPion XL (24 HR) [Wellbutrin Xl] 300 mg PO DAILY 05/04/18 [History] Clopidogrel [Plavix] 75 mg PO DAILY 05/04/18 [History] Ipratropium [ATROVENT Inhaler] 2 puff IH Q6H 05/04/18 [History] Metoprolol Succinate [Toprol Xl] 25 mg PO DAILY 05/04/18 [History] Nitroglycerin [Nitrostat] 0.4 mg SL Q5M PRN 05/04/18 [History] Ondansetron HCl [Zofran] 4 mg PO DAILY 05/04/18 [History] Tramadol HCl [Ultram] 100 mg PO QID PRN 05/04/18 [History] Azithromycin [Zithromax] 500 mg PO DAILY #10 tablet 05/06/18 [Rx] levoFLOXacin [Levaquin] 750 mg PO DAILY #10 tablet 05/06/18 [Rx] Allergies/Adverse Reactions: Allergy/AdvReac Type Severity Reaction Status Date / Time ciprofloxacin [From Cipro] AdvReac Itching Verified 03/09/18 23:57 Certification: Further, I certify that my clinical findings support that this patient is homebound (i.e. absences from home require considerable and taxing effort and are for medical reasons or hoahaoism services or infrequently or short duration when for other reasons) because: Homebound Reason: Patient requires assistance of a person or device to safely leave home Attestation: My signature below is to certify that this patient is under my care and that I, or nurse practitioner, or a physician's bankruptcy legal assistant working with me, has a [id number] encounter with this patient.
[2018-05-06] MEDS ORDERED: Metoprolol XL (24 HR) Succ 25 MG TAB.ER.24H PO SCH (09:00)
[2018-05-06] MEDS ORDERED: BuPROPion XL (24 HR) 150 MG TABLET PO SCH (09:00)
[2018-05-06] MEDS ORDERED: levoFLOXacin 750 MG TABLET PO SCH (09:00)
[2018-05-06] MEDS ORDERED: Aspirin Enteric Coated 81 MG Tablet PO SCH (09:00)
[2018-05-06] MEDS ORDERED: Tiotropium 18 MCG inhalation IH SCH (10:00)
== END 2018-05-06 09:46 | disposition home health service (06) ==
LOC: 3ANU
PROVIDERS: ADMIT Internal Medicine; ATTEND Internal Medicine